=== PATIENT | female | born 1980 | race Two or more races ===

== ENCOUNTER 2022-06-25 14:05 | Emergency (ER) | payer OTHER ==
[~2022-06-25] VITALS: Ht 157.5 cm; Wt 71.7 kg
== END 2022-06-26 22:40 | disposition home or self-care (01) ==
LOC: ER 14:05
DX: D64.9 Anemia, unspecified (principal); D25.9 Leiomyoma of uterus, unspecified

== ENCOUNTER 2022-07-03 12:15 | Inpatient (IN) | payer OTHER ==
[~2022-07-03] VITALS: Ht 157.5 cm; Wt 70.8 kg
[2022-07-03] MEDS ORDERED: FERROUS PO (15:07)
[2022-07-03] MEDS ORDERED: PROVERA PO (15:07)
[2022-07-03] MEDS ORDERED: [UNRECOGNIZED DRUG - OTHER] PO (15:08)
[2022-07-08] MEDS ORDERED: MAXFE CAPLET1 EAC1 PO ×2 (07:22→07:25)
[2022-07-08] MEDS ORDERED: IBU800 MG PO (07:24)
[2022-07-08] MEDS ORDERED: PERCOCET 5-3251 EACH PO (07:24)
== END 2022-07-08 11:03 | disposition home or self-care (01) | DRG 743 ==
LOC: SURH 12:15 → O/R 07-07 07:42 → OB/GYN 07-07 15:51
PROVIDERS: ADMIT Obstetrics & Gynecology Gynecology; ATTEND Obstetrics & Gynecology Gynecology
PROC: 0UT74ZZ Resection of Bilateral Fallopian Tubes, Percutaneous Endoscopic Approach (ICD-10-PCS; 2022-07-07)
PROC: 0UT94ZZ Resection of Uterus, Percutaneous Endoscopic Approach (ICD-10-PCS; principal; 2022-07-07 11:15)
DX: D25.1 Intramural leiomyoma of uterus (principal); Z20.822 Contact with and (suspected) exposure to COVID-19; N72 Inflammatory disease of cervix uteri